=== PATIENT | female | born 1970 | race Caucasian/White ===

== ENCOUNTER 2018-11-17 09:24 | Emergency (ER) | payer OTHER ==
[~2018-11-17] VITALS: Ht 165.1 cm; Wt 107.5 kg
[2018-11-17] MEDS ORDERED: Cephalexin500 M1 PO (10:27)
== END 2018-11-17 10:37 | disposition home or self-care (01) ==
LOC: ER 09:24
DX: L60.0 Ingrowing nail (principal); L03.031 Cellulitis of right toe
CPT/HCPCS: 99283

== ENCOUNTER 2018-12-16 10:51 | Emergency (ER) | payer OTHER ==
[~2018-12-16] VITALS: Ht 165.1 cm; Wt 105.2 kg
[~2018-12-16 10:51] MED LIST: Cephalexin500 M1 PO
[2018-12-16] MEDS ORDERED: IBU800 MG PO (11:16)
[2018-12-16] MEDS ORDERED: HYDHCL25 PO (11:16)
[2018-12-16] MEDS ORDERED: INVEGA SUS156 MG/1 M IM (11:16)
== END 2018-12-16 11:43 | disposition home or self-care (01) ==
LOC: ER 10:51
DX: F31.9 Bipolar disorder, unspecified (principal); Z79.899 Other long term (current) drug therapy
CPT/HCPCS: 96372; 99281-25

== ENCOUNTER → 2019-03-17 | Outpatient (CLI) | payer OTHER ==
[~2019-03-17] MED LIST changes: +HYDHCL25 PO; +IBU800 MG PO; +INVEGA SUS156 MG/1 M IM; +ONDA4ODT MM; +ROBITUSSIN30 MG/5 ML PO; +Ventolin/Prove6.7 GM
== END | disposition home or self-care (01) ==
LOC: LAB 07:42 → LAB SHORT 07:42
DX: L60.2 Onychogryphosis (principal); B35.1 Tinea unguium
CPT/HCPCS: 88305; 88312

== ENCOUNTER 2019-04-14 22:14 | Emergency (ER) | payer OTHER ==
[~2019-04-14] VITALS: Ht 162.6 cm; Wt 101.2 kg
[~2019-04-14 22:14] MED LIST changes: -ONDA4ODT MM; -ROBITUSSIN30 MG/5 ML PO; -Ventolin/Prove6.7 GM
[2019-04-14] MEDS ORDERED: Ventolin/Prove6.7 GM (22:22)
[2019-04-15] MEDS ORDERED: ROBITUSSIN30 MG/5 ML PO (00:57)
[2019-04-15] MEDS ORDERED: ONDA4ODT MM (01:14)
== END 2019-04-15 01:19 | disposition home or self-care (01) ==
LOC: ER 22:14
DX: R05 Cough (principal); R06.02 Shortness of breath; F31.9 Bipolar disorder, unspecified; F20.9 Schizophrenia, unspecified; F41.9 Anxiety disorder, unspecified; Z88.8 Allergy status to other drugs, medicaments and biological substances; Z79.899 Other long term (current) drug therapy
CPT/HCPCS: 71046; 94640; 99283-25

== ENCOUNTER → 2019-08-08 | Outpatient (CLI) | payer OTHER ==
[~2019-08-08] MED LIST changes: +ONDA4ODT MM; +ROBITUSSIN30 MG/5 ML PO; +Ventolin/Prove6.7 GM
== END | disposition home or self-care (01) ==
LOC: LAB SHORT 16:43 → LAB 16:43 → LAB FUT 06-17 15:05 → EDSTATUS 06-17 15:05
DX: F41.9 Anxiety disorder, unspecified (principal)
CPT/HCPCS: G0480